=== PATIENT | male | born 1940 | race Caucasian/White ===

== ENCOUNTER → 2017-01-17 | Day surgery (SDC) | payer MEDICARE, BC ==
[~2017-01-17] VITALS: Ht 182.9 cm; Wt 84.6 kg
[~2017-01-17] MED LIST: (DPS FOR ANTIVE25 MG PO; ASPIR 8181 MG PO; IMDUR30 MG PO; LIPITOR80 MG PO; LOPRESSOR25 MG PO; NORCO 5-325 TA1 EACH PO; NORVASC2.5 MG PO; PLAVIX75 MG PO; PRINIVIL OR ZES10 MG PO; PROTONIX40 MG PO; RANEXA ER500 MG PO; RANEXA1000 MG PO; VITAMIN D-32000 UNI1 PO
--- NOTE | ~2017-01-17 | OR ---
PATIENT'S NAME: RUBENS BLACKBURN [facility] AGE: 76 Y [address] ROOM: [place] [id number] LOCATION: [facility] [place] ADMIT DATE: 01/17/2017 OR/Procedure Report DISCHARGE DATE: FAMILY PHYSICIAN: Calixto Tolliver MD ATTENDING PHYSICIAN: CHAIM COWAN SURGEON: Chaim Cowan MD FUNERAL LOCATION MANAGER: None. 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 POSTOPERATIVE DIAGNOSIS: Right posterior scalp squamous cell carcinoma. PROCEDURE: 1. Wide local excision of the right posterior scalp squamous cell carcinoma 2.5 x 1.5 cm. 2. Complex closure 5 cm. ANESTHESIA: Local with MAC. COMPLICATIONS: None. BLOOD LOSS: 10 mL. FINDINGS: Negative frozen section margins. SPECIMEN: Right posterior scalp lesion. INDICATIONS: The patient is a 76-year-old male with a biopsy-proven right posterior scalp squamous cell carcinoma. We discussed removal along with its risks, benefits, and alternatives, provided informed consent. DESCRIPTION OF PROCEDURE: The patient was brought from the preoperative area to the operative suite, placed on table supine position. All pressure points were padded. Time-out was performed, correctly identifying the patient and the procedure. The right posterior scalp was exposed, prepped with injection of 1% lidocaine with epinephrine and 0.5% Marcaine with epinephrine in 1:1 ratio. The patient was rotated to his left side with a gel roll behind his back. The patient was prepped and draped in usual sterile fashion. Incision was made with a 15 blade in a circular fashion around the lesion which was carried down to the galeal plane. Marked with sutures and sent off for frozen section margin which did return negative. Spot cautery was utilized for hemostasis. Wide undermining was performed and Ayana triangles removed from either end of the incision. This was turned into a linear complex closure of 5 cm with 3-0 Vicryl sutures deep and a 3-0 Prolene for the skin. The patient PATIENT'S NAME: RUBENS BLACKBURN [facility] AGE: 76 Y [address] ROOM: [place] [address] LOCATION: [facility] [place] ADMIT DATE: 01/17/2017 OR/Procedure Report DISCHARGE DATE: FAMILY PHYSICIAN: Calixto Tolliver MD ATTENDING PHYSICIAN: CHAIM COWAN tolerated this well. Ointment was applied. The patient was returned to the care of anesthesia for extubation and returned to Recovery. MD ANTWAN GARRISON/modl /[id number] d: 01/17/17 1448 t: 01/24/17 0825, OPERATIVE SUMMARY
== END | disposition disaster alternative care site (69) ==
LOC: GPOC 01-10 13:00 → GSDC 07:27 → GPOC 13:00
PROC: 0HB0XZZ Excision of Scalp Skin, External Approach (ICD-10-PCS; principal; 2017-01-17)
DX: C44.42 Squamous cell carcinoma of skin of scalp and neck (principal); I11.0 Hypertensive heart disease with heart failure; I50.9 Heart failure, unspecified; I25.10 Atherosclerotic heart disease of native coronary artery without angina pectoris; I25.2 Old myocardial infarction; I25.9 Chronic ischemic heart disease, unspecified; I10 Essential (primary) hypertension; E78.5 Hyperlipidemia, unspecified; K21.9 Gastro-esophageal reflux disease without esophagitis; Z79.01 Long term (current) use of anticoagulants; Z88.8 Allergy status to other drugs, medicaments and biological substances; Z79.899 Other long term (current) drug therapy
CPT/HCPCS: J2001; J7120